=== PATIENT | female | born 1990 | race African-American/Black ===

== ENCOUNTER 2023-03-20 12:43 | Emergency (ER) | payer OTHER ==
[~2023-03-20] VITALS: Ht 157.5 cm; Wt 145.4 kg
[2023-03-20 12:57] LABS: COVID AG,FIA SOURCE NASAL SWAB
[2023-03-20 13:03] LABS: INFLUENZA TYPE A NEGATIVE FOR TYPE A (NEGATIVE); INFLUENZA TYPE B NEGATIVE FOR TYPE B (NEGATIVE); SARS-COV2 (COVID) ANTIGEN,FIA Negative (Negative)
[2023-03-20 13:04] LABS: RAPID GROUP A STREP NEGATIVE (NEGATIVE)
[2023-03-20] MEDS ORDERED: ACETAMINOPHEN 500 MG TABLET PO ONE (13:30)
[2023-03-20] MEDS ORDERED: IBUPROFEN 600 MG TABLET PO ONE (13:30)
[2023-03-20 15:58] VITALS: BP 127/75; TEMP 98.5
[2023-03-20] MEDS ORDERED: ALBUTEROL SULFATE HFA 90 MCG/PUFF 8 GM INHALER IH ONE (17:00)
[2023-03-20] MEDS ORDERED: BENZ-227 PO (17:03)
[2023-03-20 17:13] VITALS: PULSE 97; RESP 20; O2SAT 97
== END 2023-03-20 17:40 | disposition home or self-care (01) ==
LOC: EMS 12:49
DX: J06.9 Acute upper respiratory infection, unspecified (principal); J02.9 Acute pharyngitis, unspecified; F17.210 Nicotine dependence, cigarettes, uncomplicated; Z20.822 Contact with and (suspected) exposure to COVID-19
CPT/HCPCS: 99283; 87426; 87430; 87804; 94640; 81025; J3535

== ENCOUNTER 2023-07-17 21:08 | Emergency (ER) | payer OTHER ==
[~2023-07-17] VITALS: Ht 157.5 cm; Wt 144.6 kg
[~2023-07-17 21:08] MED LIST: BENZ-227 PO
[2023-07-17] MEDS: DEXAMETHASONE 4 MG TABLET PO ONE (22:26)
[2023-07-17] MEDS: ACETAMINOPHEN/CODEINE 300-30 MG TABLET PO ONE (22:26)
[2023-07-17] MEDS: CEPHALEXIN MONOHYDRATE 500 MG CAPSULE PO ONE (22:26)
[2023-07-17] MEDS ORDERED: ACET-2080 PO (22:38)
[2023-07-17] MEDS ORDERED: PENI500T2 PO (22:38)
[2023-07-17] MEDS ORDERED: IBUP-1554 PO (22:38)
[2023-07-17 22:49] VITALS: BP 128/64; PULSE 85; RESP 18; TEMP 98.2
== END 2023-07-17 22:50 | disposition home or self-care (01) ==
LOC: EMS 21:09
DX: J02.0 Streptococcal pharyngitis (principal)
CPT/HCPCS: 99284; 87430; J8540; Z7502; Z7610